=== PATIENT | female | born 1960 | race Caucasian/White ===

== ENCOUNTER 2017-01-24 10:36 | Emergency (ER) | payer BC ==
[2017-01-24] MEDS ORDERED: Ondansetron 4 MG/2 ML SDV IVPUSH ONE (11:24)
[2017-01-24] MEDS ORDERED: Sodium Chloride 0.9% 1,000 ML IV ONE (11:24)
--- NOTE | 2017-01-24 11:36 | EDM.PDOC ---
ED HPI GENERAL MEDICAL PROBLEM - General Chief Complaint: Abdominal Pain Stated Complaint: ABD PAIN Time Seen by Provider: 01/24/17 11:22 Source of Information: Reports: Patient History Limitations: Reports: No Limitations - History of Present Illness INITIAL COMMENTS - FREE TEXT/NARRATIVE: HISTORY AND PHYSICAL: History of present illness: Patient is a 56-year-old female presents to the emergency room today with complaints of umbilical abdominal pain, diarrhea, and nausea since this morning. Patient reports she was on her way to work when these symptoms started. Describes this pain as a "burning sharp" pain. Has a history of frequent diarrhea which she states she has had syncopal episodes within the past , no syncope with today's complaints. States her diarrhea is "running out of "denies any blood in her stools. New foods or stomach upsetting foods within the last 24 hours. She was able to eat last night without any difficulty. Patient voices concern that she may have an appendicitis. She states that her son had similar pain in the umbilicus area and ended up needing an appendectomy. The pain is localized in the umbilicus and does not radiate to the lower quadrants. Denies any chest pain, shortness of breath, dysuria or fever or chills. Review of systems: As per history of present illness and below otherwise all systems reviewed and negative. Past medical history: As per history of present illness and as reviewed below otherwise noncontributory. Surgical history: As per history of present illness and as reviewed below otherwise noncontributory. Social history: No reported history of drug or alcohol abuse. Family history: As per history of present illness and as reviewed below otherwise noncontributory. Physical exam: Gen.: Well-developed and well-nourished 56-year-old female. Able to speak in full sentences without shortness of breath. Alert and oriented. HEENT: Atraumatic, normocephalic, pupils reactive, negative for conjunctival pallor or scleral icterus, mucous membranes moist, throat clear, neck supple, nontender, trachea midline. Lungs: Clear to auscultation, breath sounds equal bilaterally, chest nontender. Heart: S1S2, regular, negative for clicks, rubs, or JVD. Abdomen: Soft, nondistended, umbilical and left upper quadrant tenderness with palpation. No rebound tenderness. Negative for masses or hepatosplenomegaly. Negative for costovertebral tenderness. Pelvis: Stable nontender. Genitourinary: Deferred. Rectal: Deferred. Extremities: Atraumatic, negative for cords or calf pain. Neurovascular unremarkable. Neuro: Awake, alert, oriented. Cranial nerves II through XII unremarkable. Cerebellum unremarkable. Motor and sensory unremarkable throughout. Exam nonfocal. Patient was unable to have a bowel movement while here in the emergency room. I did explain to her that she can collect a sample at home and bring back a stool sample for culture and Campylobacter study. Supplies will be given to the patient with education area patient voices understanding. I did explain that the CT showed gallstones and this can be managed with dietary changes and follow -up with the general surgeon as an outpatient. Symptoms are likely due to a viral gastroenteritis. Was instructed her to have a bland diet over the next 24 hours. If her symptoms worsen or new symptoms develop I did request that she return to the emergency room or follow-up with her primary care provider. Patient voices understanding and is agreeable to plan of care. Diagnostics: CBC, CMP, amylase, lipase, UA, stool studies, CT abdomen and pelvis Therapeutics: IV fluid, Zofran Impression: Gastroenteritis Choleliathisis Diarrhea Plan: 1. Please consume a bland diet for the next 24 hours and increase as tolerated. They take Zofran as prescribed to prevent nausea. 2. You may want to follow-up with the general surgeon regarding her gallstones. As we discussed this is nonemergent in may be managed with dietary changes. 3. Supplies have been given to you to collect a stool sample if you continue to have diarrhea. He may return this to the admissions desk at the emergency room for lab studies. 4. Follow-up with your primary care provider in the next 1-2 days. Return to the ED as needed and as discussed. Definitive disposition and diagnosis as appropriate pending reevaluation and review of above. Onset: Today Duration: Minutes: Location: Reports: Abdomen Abdominal Pain Score (Numeric/FACES): 6 - Related Data Allergies Allergy/AdvReac Type Severity Reaction Status Date / Time No Known Allergies Allergy Verified 01/24/17 11:06 Home Meds: Home Meds Estrogen,Con/M-Progest Acet [Prempro 0.3 MG-1.5 MG] 1 tab PO DAILY 01/24/17 [ History] Past Medical History - Past Health History Medical/Surgical History: Denies Medical/Surgical History Other Genitourinary History: has hotflashes, last period 5 years ago Social & Family History - Tobacco Use Smoking Status *Q: Never Smoker Second Hand Smoke Exposure: No - Caffeine Use Caffeine Use: Reports: None - Recreational Drug Use Recreational Drug Use: No ED ROS GENERAL - Review of Systems Review Of Systems: ROS reveals no pertinent complaints other than HPI. ED EXAM, GI/ABD - Physical Exam Exam: See Below (See dictation) Course - Vital Signs Last Recorded V/S: Last Vital Signs Temp 36.8 C 01/24/17 11:07 Pulse 93 01/24/17 11:07 Resp 18 01/24/17 11:07 BP 129/76 01/24/17 11:07 Pulse Ox 96 01/24/17 11:07 - Orders/Labs/Meds Orders: Active Orders 24 hr Category Date Time Status CULTURE STOOL + CAMPY+SHIGATOX [RM] Stat Lab 01/24/17 11:31 Uncollected Labs: Laboratory Tests 01/24/17 01/24/17 01/24/17 Range/Units 11:20 11:20 12:40 WBC 12.25 H (4.0-11.0) K/uL RBC 4.92 (4.30-5.90) M/uL Hgb 15.0 (12.0-16.0) g/dL Hct 43.3 (36.0-46.0) % MCV 88.0 (80.0-98.0) fL MCH 30.5 (27.0-32.0) pg MCHC 34.6 (31.0-37.0) g/dL RDW Std Deviation 41.3 (28.0-62.0) fl RDW Coeff of Heather 13 (11.0-15.0) % Plt Count 254 (150-400) K/uL MPV 9.80 (7.40-12.00) fL Neut % (Auto) 78.7 (48.0-80.0) % Lymph % (Auto) 14.6 L (16.0-40.0) % Mason % (Auto) 5.7 (0.0-15.0) % Eos % (Auto) 0.8 (0.0-7.0) % Baso % (Auto) 0.2 (0.0-1.5) % Neut # (Auto) 9.6 H (1.4-5.7) K/uL Lymph # (Auto) 1.8 (0.6-2.4) K/uL Mason # (Auto) 0.7 (0.0-0.8) K/uL Eos # (Auto) 0.1 (0.0-0.7) K/uL Baso # (Auto) 0.0 (0.0-0.1) K/uL Nucleated RBC % 0.0 /100WBC Nucleated RBCs # 0 K/uL Sodium 140 (136-146) mmol/L Potassium 3.9 (3.5-5.1) mmol/L Chloride 107 (98-110) mmol/L Carbon Dioxide 22 (21-31) mmol/L BUN 16 (6.0-23.0) mg/dL Creatinine 0.9 (0.6-1.5) mg/dL Est Cr Clr Drug Dosing 58.84 mL/min Estimated GFR (MDRD) > 60.0 ml/min Glucose 97 (60-110) mg/dL Calcium 9.9 (8.8-10.8) mg/dL Total Bilirubin 0.6 (0.1-1.5) mg/dL AST 17 (5-40) IU/L ALT 17 (8-54) IU/L Alkaline Phosphatase 79 (40-150) Total Protein 8.2 H (6.0-8.0) g/dL Albumin 4.4 (3.5-5.0) g/dL Globulin 3.8 H (2.0-3.5) g/dL Albumin/Globulin Ratio 1.2 L (1.3-2.8) Amylase 52 (10-90) U/L Lipase 30 (7-80) U/L Urine Color YELLOW Urine Appearance CLEAR Urine pH 6.0 (5.0-8.0) Ur Specific [place] <= 1.005 (1.001-1.035) Urine Protein NEGATIVE (NEGATIVE) mg/dL Urine Glucose (UA) NEGATIVE (NEGATIVE) mg/dL Urine Ketones NEGATIVE (NEGATIVE) mg/dL Urine Occult Blood SMALL H (NEGATIVE) Urine Nitrite NEGATIVE (NEGATIVE) Urine Bilirubin NEGATIVE (NEGATIVE) Urine Urobilinogen 0.2 (<2.0) EU/dL Ur Leukocyte Esterase NEGATIVE (NEGATIVE) Urine RBC 2-4 (0-2/HPF) Urine WBC 0-2 (0-5/HPF) Ur Squamous Epith Cells FEW Urine Bacteria RARE (NEGATIVE) Urine Mucus LIGHT (NONE-MOD) Meds: Medications Discontinued Medications Generic Name Dose Route Start Last Admin Trade Name Dipti PRN Reason Stop Dose Admin Sodium Chloride 1,000 mls @ 999 mls/hr 01/24/17 11:24 01/24/17 11:36 Normal Saline IV 01/24/17 12:24 999 mls/hr STAT ONE Administration Iopamidol 90 ml 01/24/17 12:00 01/24/17 12:01 Isovue Multipack-370 (76%) IVPUSH 01/24/17 12:01 90 ml ONETIME STA Administration Ketorolac Tromethamine 30 mg 01/24/17 12:49 Toradol IVPUSH 01/24/17 12:50 ONETIME ONE Ondansetron HCl 4 mg 01/24/17 11:24 01/24/17 11:33 Zofran IVPUSH 01/24/17 11:25 4 mg ONETIME ONE Administration Departure - Departure Time of Disposition: 13:33 Disposition: Home, Self-Care 01 Condition: Good Clinical Impression: Gastroenteritis Cholelithiasis Qualifiers: Cholelithiasis location: gallbladder Cholecystitis presence: without cholecystitis Biliary obstruction: without biliary obstruction Qualified Code(s) : K80.20 - Calculus of gallbladder without cholecystitis without obstruction Diarrhea Qualifiers: Diarrhea type: unspecified type Qualified Code(s): R19.7 - Diarrhea, unspecified - Discharge Information Referrals: PCP,Not In Area [Primary Care Provider] - Forms: ED Department Discharge Additional Instructions: My general discharge The following information is given to patients seen in the emergency department who are being discharged to home. This information is to outline your options for follow-up care. We provide all patients seen in our emergency department with a follow-up referral. The need for follow-up, as well as the timing and circumstances, are variable depending upon the specifics of your emergency department visit. If you don't have a primary care physician on staff, we will provide you with a referral. We always advise you to contact your personal physician following an emergency department visit to inform them of the circumstance of the visit and for follow-up with them and/or the need for any referrals to a consulting specialist. The emergency department will also refer you to a specialist when appropriate. This referral assures that you have the opportunity for follow-up care with a specialist. All of these measure are taken in an effort to provide you with optimal care, which includes your follow-up. Under all circumstances we always encourage you to contact your private physician who remains a resource for coordinating your care. When calling for follow-up care, please make the office aware that this follow-up is from your recent emergency room visit. If for any reason you are refused follow-up, please contact the [facility] Emergency Department at and asked to speak to the emergency department charge nurse. [facility] [address] [place] [id number] [facility] - General Surgery Professional Building [address] [place] [address], [address] [place] [address] 1. Please consume a bland diet for the next 24 hours and increase as tolerated. They take Zofran as prescribed to prevent nausea. 2. You may want to follow-up with the general surgeon regarding her gallstones. As we discussed this is nonemergent in may be managed with dietary changes. 3. Supplies have been given to you to collect a stool sample if you continue to have diarrhea. He may return this to the admissions desk at the emergency room for lab studies. 4. Follow-up with your primary care provider in the next 1-2 days. Return to the ED as needed and as discussed. - My Orders Last 24 Hours: My Active Orders 01/24/17 11:31 CULTURE STOOL + CAMPY+SHIGATOX [RM] Stat - Assessment/Plan Last 24 Hours: My Active Orders 01/24/17 11:31 CULTURE STOOL + CAMPY+SHIGATOX [RM] Stat
[2017-01-24 11:51] LABS: CHLORIDE,CL 107 mmol/L (98-110); SODIUM,NA 140 mmol/L (136-146)
[2017-01-24] MEDS ORDERED: Iopamidol 755 MG/ML 500 ML Multipack Bottle IVPUSH STA (12:00)
--- NOTE | 2017-01-24 12:44 | CT ---
CT of the abdomen and pelvis with contrast. HISTORY: Pain TECHNIQUE: Axial CT images were obtained of the abdomen and pelvis following administration of 90 mL of Isovue-370 in the right antecubital fossa without complication. Coronal and sagittal reconstructio ns obtained. FINDINGS: The lung bases are clear, no pleural effusion. The liver, adrenal glands, and pancreas appear normal. Likely a tiny splenic cyst. Cholelithiasis wit hout evidence of cholecystitis. No bulky retroperitoneal lymphadenopathy lymphadenopathy or abdominal ascites. The kidneys enhance and function symmetrically without evidence of obstructive uropathy. The large and small bowel are normal in caliber without evidence of obstruction. No focal pericolonic inflammation or stranding. The appendix appears grossly unremarkable. Urinary bladder is decompresse d. The uterus and ovaries are grossly unremarkable. No suspicious osseous abnormalities. IMPRESSION: 1. No acute findings identified within the abdomen or pelvis. 2. Cholelithiasis without evidence of cholecystitis.
[2017-01-24] MEDS ORDERED: Ketorolac 30 MG/ML SDV IVPUSH ONE (12:49)
== END 2017-01-24 13:52 | disposition home or self-care (01) ==
LOC: MW.ED 10:36
DX: K52.9 Noninfective gastroenteritis and colitis, unspecified (principal); K80.20 Calculus of gallbladder without cholecystitis without obstruction
CPT/HCPCS: 36415; 74177; 80053; 81001; 82150; 83690; 85025; 96361; 96374; 99284; J2405; J7040; Q9967; 99283

== ENCOUNTER 2022-03-17 09:42 | Day surgery (SDC) | payer BC ==
[~2022-03-17 09:42] MED LIST: Acetaminophen 1,000 MG in Premix Bag 1 BAG IV SCH; Desflurane 240 ML Bottle ONE; Dexamethasone 4 MG/ML 5 ML MDV ONE; Glycopyrrolate 0.2 MG/ML SDV ONE; Indocyanine Green 25 MG SDV ONE; Lactated Ringers 1,000 ML IV SCH; Ondansetron 4 MG/2 ML SDV ONE; Pregabalin 75 MG Cap PO SCH; Rocuronium Bromide 50 MG/5 ML Syringe ONE; Ropivacaine 0.5% 5 MG/ML 30 ML SDV ONE; Scopolamine 1.5 MG Transdermal Patch TOP ONE; Sugammadex Sodium 200 MG/2 ML VIAL ONE; Water For Injection, Sterile 20 ML ONE; Water For Injection, Sterile 40 ML ONE; cefOXitin 2 GM in Premix Bag 1 BAG IV SCH; ePHEDrine 50 MG/ML SDV ONE; fentaNYL 100 MCG/2 ML SDV ONE; fentaNYL 250 MCG/5 ML SDV ONE; propofoL 100 ML ONE
[2022-03-17] MEDS ORDERED: Pregabalin 75 MG Cap ONE (10:24)
[2022-03-17] MEDS ORDERED: Morphine 2 MG/ML SYRINGE IVPUSH PRN (10:41)
[2022-03-17] MEDS ORDERED: HYDROmorphone 1 MG/ML Syringe IVPUSH PRN (10:41)
[2022-03-17] MEDS ORDERED: Metoclopramide 10 MG/2 ML SDV IVPUSH PRN (10:41)
[2022-03-17] MEDS ORDERED: Ondansetron 4 MG/2 ML SDV IVPUSH PRN (10:41)
[2022-03-17] MEDS ORDERED: Naloxone 0.4 MG/ML SDV IVPUSH PRN (10:41)
[2022-03-17] MEDS ORDERED: Albuterol 0.083% 2.5 MG/3 ML Neb Soln NEB PRN (10:41)
[2022-03-17] MEDS ORDERED: fentaNYL 50 MCG/ML SDV IVPUSH PRN (10:41)
[2022-03-17] MEDS ORDERED: Bupivacaine 0.25% 30 ML SDV ONE (11:51)
[2022-03-17] MEDS ORDERED: fentaNYL 250 MCG/5 ML SDV ONE (12:45)
== END 2022-03-17 15:40 | disposition home or self-care (01) ==
LOC: MW.SDS 09:42
PROVIDERS: ATTEND Surgery
DX: K80.10 Calculus of gallbladder with chronic cholecystitis without obstruction (principal); E87.6 Hypokalemia; F41.1 Generalized anxiety disorder; I10 Essential (primary) hypertension; N17.9 Acute kidney failure, unspecified; E66.9 Obesity, unspecified; Z79.899 Other long term (current) drug therapy; Z98.890 Other specified postprocedural states
CPT/HCPCS: 47562; A9270; J1100; J2704; J2795; J3010; J3490; J7030; J7120; 00790; 64488; J2405